=== PATIENT | female | born 1990 | race Caucasian/White ===

== ENCOUNTER 2023-01-30 10:54 | Day surgery (SDC) | payer BC ==
[2023-01-30] VITALS (10 sets, daily range): BP systolic 107–130; BP diastolic 53–74; PULSE 67–96; TEMP 97–98.2
[~2023-01-30] VITALS: Ht 170.2 cm; Wt 94.0 kg
[2023-01-31 01:30] VITALS: BP 121/61; PULSE 77; TEMP 98.2
[2023-01-31 08:45] VITALS: BP 113/73; PULSE 95; TEMP 98.1
--- NOTE | 2023-01-31 09:10 | NUR ---
Initial visit; Mom indisposed, Criminal Justice Instructor spoke with offering God's presence thanking "God" for a rapid and thorough recovery for Liliana.
== END 2023-01-31 09:15 | disposition home or self-care (01) ==
LOC: SDCO 10:54 → OB 16:50 → SDCO 01-31 09:15
PROVIDERS: Obstetrics & Gynecology
DX: D25.9 Leiomyoma of uterus, unspecified (principal); N83.12 Corpus luteum cyst of left ovary; N83.02 Follicular cyst of left ovary; G89.29 Other chronic pain; N32.89 Other specified disorders of bladder; N73.6 Female pelvic peritoneal adhesions (postinfective); R23.4 Changes in skin texture; N92.0 Excessive and frequent menstruation with regular cycle; N80.9 Endometriosis, unspecified; N94.6 Dysmenorrhea, unspecified; N93.0 Postcoital and contact bleeding; E28.2 Polycystic ovarian syndrome; E66.9 Obesity, unspecified; F17.210 Nicotine dependence, cigarettes, uncomplicated; Z68.31 Body mass index [BMI] 31.0-31.9, adult
CPT/HCPCS: OP; A4314; J0690; J1100; J1170; J1885; J2405; J2710; J3010; J7120

== ENCOUNTER 2024-01-13 06:30 | Day surgery (SDC) | payer BC ==
[~2024-01-13] VITALS: Ht 170.2 cm; Wt 95.9 kg
[~2024-01-13 06:30] MED LIST: LR 1,000 ML IV SCH; Ondansetron 4 MG/2 ML VIAL IV PRN
[2024-01-13 06:38] VITALS: BP 120/75; PULSE 69; TEMP 97.4
[2024-01-13] MEDS ORDERED: ALDACTONE50 MG PO (06:48)
[2024-01-13] MEDS ORDERED: MINOCYCLIN100 MG/CAP PO (06:48)
[2024-01-13] MEDS ORDERED: DESYREL 100MG100 MG PO (06:48)
[2024-01-13] MEDS ORDERED: THERA-D RAPID2000 IU PO (06:50)
[2024-01-13] MEDS ORDERED: IBU400 MG PO (06:50)
--- NOTE | 2024-01-13 07:19 | NUR ---
The patient ambulated back to [facility] independently using a steady gait and appeared to tolerate the activity well. Vital sigbs obtained. Consent signed. 20G IV started in right hand with one stick, LR infusing without difficulty. Assessment completed. Home medications reconcilled. Warm blanket provided. , Aden, brought back to be at her bedside. The patient denies any further needs at this time.
[2024-01-13] MEDS ORDERED: Lidocaine PF 2% (20 MG/ML) 5 ML VIAL ONE (07:43)
[2024-01-13 08:40] VITALS: BP 93/61; PULSE 64; TEMP 97.1
[2024-01-13 08:55] VITALS: BP 94/59; PULSE 60
[2024-01-13 09:10] VITALS: BP 101/62; PULSE 60
--- NOTE | 2024-01-13 09:10 | NUR ---
0840 RETURNS TO ROOM 1 PER CART. AWAKE, ALERT. RESP UNLABORED. AMBULATES TO RECLINER WITH STANDBY ASSIST. DENIES NAUSEA OR ABD PAIN. VITAL SIGNS OBTAINED. CALL LIGHT AT SIDE. IN ROOM. 0849 DR ZAMBRANO HERE TO VISIT WITH PATIENT 0900 [place] PO SODA WITHOUT NAUSEA. DISCHARGE INSTRUCTIONS REVIEWED. PATIENT VERBALIZES UNDERSTANDING. COPY PROVIDED IN DISCHARGE FOLDER 0905 DRESSES SELF
== END 2024-01-13 09:10 | disposition home or self-care (01) ==
LOC: SDCO 06:30
DX: D12.0 Benign neoplasm of cecum (principal); K58.2 Mixed irritable bowel syndrome; K62.89 Other specified diseases of anus and rectum; R19.4 Change in bowel habit; F17.210 Nicotine dependence, cigarettes, uncomplicated
CPT/HCPCS: J2704; J7120